=== PATIENT | female | born 1995 | race African-American/Black ===

== ENCOUNTER 2022-03-11 22:24 | Emergency (ER) | payer OTHER ==
[2022-03-12] MEDS ORDERED: NAPROXEN500 MG PO (03:05)
[2022-03-12] MEDS ORDERED: NORCO 5-325 TA1 EACH PO (03:05)
== END 2022-03-12 03:45 | disposition home or self-care (01) ==
LOC: FER 22:24
DX: M79.671 Pain in right foot (principal); W31.9XXA Contact with unspecified machinery, initial encounter; Y93.89 Activity, other specified; Y99.0 Civilian activity done for income or pay
CPT/HCPCS: 73630; G0480